=== PATIENT | female | born 2000 | race Caucasian/White ===

== ENCOUNTER 2019-12-17 16:40 | Emergency (ER) | payer SELFPAY ==
[~2019-12-17] VITALS: Ht 157.5 cm; Wt 72.7 kg
[2019-12-17 16:43] VITALS: Ht 157.5 cm; Wt 72.7 kg
[2019-12-17 20:35] VITALS: BP 104/65
== END 2019-12-17 20:35 | disposition home or self-care (01) ==
LOC: D.ER 16:40
DX: R55 Syncope and collapse (principal); E86.9 Volume depletion, unspecified; J45.909 Unspecified asthma, uncomplicated